=== PATIENT | female | born 1955 | race Caucasian/White ===

== ENCOUNTER 2016-12-20 02:31 | Emergency (ER) | payer BC ==
[2016-12-20] MEDS: NITROGLYCERIN 0.4 MG SL TAB (BOTTLE OF 3) SL ONE ×2 (02:46→02:51)
[2016-12-20] MEDS ORDERED: MORPHINE SULFATE 4 MG/1 ML IVP ONE (02:51)
[2016-12-20] MEDS ORDERED: ONDANSETRON 4 MG/2 ML VIAL IVP ONE (02:51)
[2016-12-20] MEDS ORDERED: Sodium Chloride 0.9% 1,000 ML PRIMARY IV ONE (02:53)
--- NOTE | 2016-12-20 02:59 | PDOC ---
Gen Adult / Medical Screen HPI - General Chief Complaint: General Medical Stated Complaint: COUGH, CONGESTION AND FEVER Date Seen by Provider: 12/20/16 Time Seen by Provider: 02:54 Source: POSITIVE: Patient Exam Limitations: POSITIVE: No limitations Nurse's Notes Reviewed & Considered: Yes - Indicators Temperature Between 95 and 101 Degrees: Yes Respirations Between 12 and 20: Yes Blood Pressure Between 100-165 (sys) and 60-100 (cordero): Yes Pulse Range Between 60-105 (100 for age > 60 years): Yes Severe Pain (Greater than 5/10 Reported): Yes (chest pain) Chest or Abdominal Pain: Yes Inability to Walk: No Pt Reports Active High Risk Cond. (TB/Hepatitis/HIV/Chemo): No Abnormal Mental Status: No - History of Present Illness Initial Comments: Patient comes in today with chief complaint of severe chest pain. Patient had sudden onset of left substernal chest pain with radiation to her back and down her left arm at approximately 1800 hrs. last night. She took some ibuprofen when she found that she had a fever to 104. She took aspirin for approximately 2 hours later when her temperature was 101. She now comes in because of continued chest pain that she describes as sharp in nature. She denies any shortness of breath. She denies any chills or sweats, no nausea vomiting or diarrhea. Body Location Affected: REPORTS: Chest Timing: REPORTS: Abrupt Duration: <24 hours Similar Symptoms Previously: No Recent Care Received: REPORTS: Denies Any Prior Injuries Related to Current Complaint?: No - Patient Home Medications Home Medications: Home Medications Beta-Carotene(A) W-C & E/Min [Vision Vitamins] 1 each PO DAILY tab 07/22/12 Multivitamins W-Minerals [Hair, Skin & Nails] 1 tab ORAL QD #30 tab 07/22/12 Vitamin B Complex [B Complex] 1 each PO DAILY #0 tab 07/22/12 Metoprolol Succinate [Toprol Xl] 50 mg ORAL QD #90 tab 10/03/16 Levothyroxine Sodium [Synthroid] 112 mcg PO DAILY #90 tab 11/25/16 - Patient Allergies Allergies/Adverse Reactions: Allergies Allergy/AdvReac Type Severity Reaction Status Date / Time strawberry Allergy Severe Anaphylaxis Verified 12/20/16 02:36 guaifenesin [From Mucinex] Allergy Intermediate Anaphylaxis Verified 12/20/16 02 :36 Vitamin D Allergy Intermediate RASH Uncoded 12/20/16 02:36 Past Medical History - heen HEENT History: Denies History Cardiovascular History: Hypertension Respiratory History: Other (please comment) Additional Respiratory History: ENVIRONMENTAL ALLERGIES Gastrointestinal History: Denies History Genitourinary History: Denies History Endocrine History: Hypothyroidism Musculoskeletal History: Denies History Neurological History: Denies History Blood Disorders: Denies History Psychiatric History: Denies History Cancer History: Denies History History of MDRO: Unknown Alcohol Use: Rarely Substance Use Type: None Previous Surgical History: Yes Type / Date of Surgery: HYSTER Significant Family History: No pertinent family hx ROS - Limitations ROS Limitations: No Limitations Constitution: REPORTS: Fever Cardiovascular: REPORTS: Chest Pain Respiratory: REPORTS: Denies Resp Symptoms Neurological: REPORTS: Denies Neuro Symptoms Gastrointestinal: REPORTS: Denies GI Symptoms Endocrine: REPORTS: Denies Symptoms Musculoskeletal: REPORTS: Back Pain Genitourinary: REPORTS: Denies Symptoms Eyes: REPORTS: Denies Symptoms ENT: REPORTS: Denies Symptoms Skin: REPORTS: Denies Skin Symptoms Lympathic: REPORTS: Denies Lympathic Symptoms Immunologic: POSITIVE: Denies Symptoms Psychiatric: POSITIVE: Anxiety Gen Adult/Medical Screen Exam - General Appearance General Appearance: POSITIVE: Alert, Cooperative, No Evidence of Trauma, Anxious , Moderate Distress - HEENT HEENT: POSITIVE: Head Inspection Nml, Eyes Inspection Nml, Ears Inspection Nml, Nose Inspection Nml, PERRL, EOMI - Pupils Pupil Size: 4 mm: Bilateral - Neck Neck: POSITIVE: Normal Inspection, Thyroid Normal - Respiratory Respiratory: POSITIVE: No Respiratory Distress, Breath Sounds Normal - Cardiovascular Cardiovascular: POSITIVE: Regular Rate & Rhythm, No Murmur, No Gallop, PMI Normal, Other (Mild chest tenderness to palpation over her sternum.) - Abdomen Abdomen: Soft: (All Quadrants), Normal Bowel Sounds: (All Quadrants), Denies Tenderness: (All Quadrants) - Back Back: POSITIVE: Normal Inspection - Neurological / Psychological Mental Status: POSITIVE: Mood Normal, Affect Normal Orientation: POSITIVE: Oriented x 3 - Skin Skin: POSITIVE: Normal Color, Warm, Dry, No Rash - Extremities Extremity: Non-Tender: (All Extremities), Normal ROM: (All Extremities), Normal Inspection: (All Extremities) Procedures - Laceration/Wound Repair Did patient have a laceration repair: No Gen Adlt/Medical Scrn Progress - Results Reviewed by me Xrays/CTs/US Reviewed by me: Yes Discussed with Radiologist: No Lab Results Reviewed: Yes Lab Results:: Laboratory Results 12/20/16 Range/Units 02:45 WBC 14.54 H (4.8-10.8) 10^3/uL RBC 5.00 (4.20-5.40) 10^6/uL Hgb 15.0 (12.0-16.0) g/dL Hct 43.9 (37.0-47.0) % MCV 87.8 (81-99) FL MCH 30.0 (27-31) PG MCHC 34.2 (33-37) g/dL RDW Std Deviation 46.4 (39-50) fL RDW Coeff of Jensen 14.7 H (11.5-14.5) % Plt Count 278 (140-350) 10*3/uL MPV 10.3 (7.4-12.2) FL Immature Gran % (Auto) 0.3 (0-5) % Neut % (Auto) 84.4 H (50-80) % Lymph % (Auto) 9.2 L (10-50) % Gates % (Auto) 5.6 (5-15) % Eos % (Auto) 0.3 (0-8) % Baso % (Auto) 0.2 (0-1) % Immature Gran # (Auto) 0.05 10*3/UL Neut # (Auto) 12.25 10*3/UL Lymph # (Auto) 1.34 10*3/uL Gates # (Auto) 0.82 H (0.3-0.8) 10*3/UL Eos # (Auto) 0.05 10*3/UL Baso # (Auto) 0.03 10*3/UL WBC Morphology Comment Normal morphology (NORM) Plt Morphology Comment Normal morphology (NORM) RBC Morph Comment Normal morphology (NORM) ESR 4 (0-20) MM/HR PT 10.0 (9.7-11.4) secs INR 0.97 (0.00-5.90) N/A D-Dimer 1.72 H (0.00-0.59) mg/L Sodium 139 (135-145) meq/L Potassium 4.6 (3.8-5.2) meq/L Chloride 104 (98-112) meq/L Carbon Dioxide 26 (23-33) meq/L Anion Gap 9 (5-20) BUN 17 (7-22) mg/dL Creatinine 0.7 (0.50-1.20) mg/dL Estimated GFR > 60 (>60 ml/min/1.73m(2)) BUN/Creatinine Ratio 24.28 H (6-20) Glucose 136 H (78-110) mg/dL Calculated Osmolality 291.0 (267-292) mOsm/kg Calcium 10.2 (8.7-10.7) mg/dL Magnesium 2.1 (1.6-2.4) mg/dL Total Bilirubin 0.5 (0.3-1.2) mg/dL GGT 16 (8-78) IU/L AST 423 H (8-39) IU/L ALT 70 H (9-52) IU/L Alkaline Phosphatase 76 (38-126) IU/L Troponin I 33.000 H* (< 0.040) ng/mL C-Reactive Protein 0.8 (0.0-0.9) mg/dL Total Protein 6.9 (6.1-8.0) g/dL Albumin 4.2 (3.5-4.8) g/dL Globulin 2.7 (2.50-4.10) g/dL Albumin/Globulin Ratio 1.50 (1.3-2.0) mg/g Serum Alcohol < 10 (0-10) mg/dL EKG Interpretation:: POSITIVE: Abnormal EKG (ST depression in V3, V4, V5,V6.) - Patient's Progress Pain Medication Addressed: POSITIVE: Yes Re-Examine Time: 04:01 Status: POSITIVE: Improved MDM / ED Course: Patient was evaluated, an IV started, EKG was obtained, blood was drawn and sent to lab for studies, radiographic studies were obtained. Patient's chest pain did not improve with 2 sublingual nitroglycerin. After administration of IV morphine her pain began to improve. Findings: EKG shows ST depression in leads V3, V4, V5, and V6. Troponin is elevated at 32.9. CBC shows elevated white count of 14-1/2. AST is greater than 400, ALT is elevated in the 70s, GGT is normal at 16, Alcohol is negative. Chest x-ray shows no focal consolidation per my interpretation. PT and INR are nomral value. CT Chest reveals no evidence of great vessel injury, dissection, or aneurysm. Main pulmonary artery is dilated at 3.5 cm, a finding associated with pulmonary artery hypertension. No pulmonary embolism is identified. There is noted to be evidence of bronchitis with bronchial wall thickening. Assessment: Acute coronary syndrome. Plan: Transferred to [facility] for higher level of care and cardiology evaluation. Dr. Adams accepting. - Consult Consult (If Yes, Name of Consulting MD & Time Called): Yes (Dr. Peña) Consulting MD will see pt:: POSITIVE: Recommended Transfer Counseled: POSITIVE: Patient, Family, RE: Lab Results, RE: Radiology Results, RE : DX, RE: Need for F/U, Other (Need for Transfer to higher level of care.) Patient Care Time - Estimated PCT Patient Care Time (In Minutes): 45 Vital Signs - Recent Vital Signs Vital Signs: Vital Signs (Last 8 hours) Temp Pulse Resp BP Pulse Ox 12/20/16 02:31 98.0 F 93 18 130/85 93 - VS Reviewed Vital Signs Reviewed: Yes Discharge Clinical Impression: Acute coronary syndrome Discharge Disposition: Transferred to Tertiary Care Facility Condition: Stable Date Decision to Transfer to Another Facility: 12/20/16 Time Decision to Transfer to Another Facility: 05:29
[2016-12-20] MEDS ORDERED: ASPIRIN 81 MG (BABY) CHEWABLE TABLET PO SCH (03:00)
[2016-12-20 03:01] LABS: BASOPHILS # (AUTO) 0.03 10*3/UL; BASOPHILS % (AUTO) 0.2 % (0-1); EOSINOPHILS % (AUTO) 0.3 % (0-8); HEMATOCRIT 43.9 % (37.0-47.0); IMM GRAN % (AUTO) 0.3 % (0-5); IMM GRAN# (AUTO) 0.05 10*3/UL; LYMPHOCYTES # (AUTO) 1.34 10*3/uL; LYMPHOCYTES % (AUTO) 9.2 % (10-50); MEAN CORPUSCULAR HGB CONC 34.2 g/dL (33-37); MEAN PLATELET VOLUME 10.3 FL (7.4-12.2); MONOCYTES # (AUTO) 0.82 10*3/UL (0.3-0.8); MONOCYTES % (AUTO) 5.6 % (5-15); NEUTROPHILS # (AUTO) 12.25 10*3/UL; NEUTROPHILS % (AUTO) 84.4 % (50-80); RDW COEFFICIENT OF VARIATION 14.7 % (11.5-14.5); WHITE BLOOD COUNT 14.54 10^3/uL (4.8-10.8)
[2016-12-20 03:04] LABS: PLATELET MORPHOLOGY COMMENT NORMAL MORPHOLOGY (NORM)
[2016-12-20 03:11] VITALS: TEMP 98
[2016-12-20 03:17] LABS: ASPARTATE AMINO TRANSFERASE 423 IU/L (8-39); BILIRUBIN,TOTAL 0.5 mg/dL (0.3-1.2); BLOOD UREA NITROGEN 17 mg/dL (7-22); BUN/CREATININE RATIO 24.28 (6-20); C-REACTIVE PROTEIN 0.8 mg/dL (0.0-0.9); CALCIUM 10.2 mg/dL (8.7-10.7); CHLORIDE 104 meq/L (98-112); CREATININE 0.7 mg/dL (0.50-1.20); EST GLOMERULAR FILTRATION > 60 (>60 ml/min/1.73m(2)); GLUCOSE 136 mg/dL (78-110); MAGNESIUM 2.1 mg/dL (1.6-2.4); POTASSIUM 4.6 meq/L (3.8-5.2); SODIUM 139 meq/L (135-145); TOTAL PROTEIN 6.9 g/dL (6.1-8.0)
[2016-12-20 04:17] LABS: ERYTHROCYTE SEDIMENTATION RATE 4 MM/HR (0-20)
[2016-12-20] MEDS ORDERED: HEPARIN 5000 UNIT/1 ML ONE (04:19)
[2016-12-20] MEDS ORDERED: METOPROLOL TARTRATE 5 MG/5 ML VIAL ONE (04:20)
[2016-12-20 04:25] LABS: SERUM ALCOHOL < 10 mg/dL (0-10)
--- NOTE | 2016-12-20 05:22 | DI ---
HISTORY: Chest pain with elevated d-dimer. COMPARISON: None available. TECHNIQUE: Contiguous axial images of the chest were obtained and submitted for interpretation. FINDINGS: No main or segmental pulmonary emboli. No pneumothorax, pleural effusion, or area of cons olidation. There is bibasilar atelectasis versus scar. Airways are patent with no endobronchial les ion. There is diffuse bronchial wall thickening, a finding associated with chronic bronchitis and re active airways disease. No evidence of great vessel injury, dissection, or aneurysm. There are athe romatous aortic and coronary artery calcifications. The main pulmonary artery is dilated at 3.5 cm, a finding associated with pulmonary artery hypertension. Heart size is at the upper limits of normal with no pericardial effusion. No mediastinal or hilar lymphadenopathy. Calcifications are noted i n the right thyroid lobe. The wall of the distal esophagus is thickened, though incompletely distend ed. Limited evaluation of the upper abdomen reveals enlargement of the left greater than right adrenal gl ands, incompletely captured on this examination. There is age indeterminate anterior compression def ormity of T7. There is multilevel degenerative disc disease. IMPRESSION: 1. No main or segmental pulmonary emboli. 2. There is no CT evidence of acute cardiopulmonary pathology. 3. Diffuse bronchial wall thickening, a finding associated with chronic bronchitis and reactive airwa ys disease. 4. The main pulmonary artery is dilated at 3.5 cm, a finding associated with pulmonary artery hyperte nsion. 5. Calcifications are noted in the right thyroid lobe. A dedicated thyroid ultrasound may be obtaine d for further characterization. 6. The wall of the distal esophagus is thickened, though incompletely distended. Although this could represent pseudothickening or a hiatal hernia, an inflammatory or neoplastic process could cause a s imilar appearance. Correlation with upper GI or endoscopic findings is recommended. 7. Enlargement of the left greater than right adrenal glands, incompletely captured on this examinati on. Dedicated adrenal imaging is recommended if no priors are available available for comparison. 8. There is age indeterminate anterior compression deformity of T7. NOTIFICATION: The above findings were phoned to Radha Stewart in the ER Department on 12/20/2016 at 07 :24 AM EST.
--- NOTE | 2016-12-20 05:23 | DI ---
HISTORY: Chest pain. COMPARISON: None available. FINDINGS: A single portable AP view of the chest is submitted. There is no effusion, consolidation, or pneumothorax. Heart size is at the upper limits of normal with increased pulmonary vasculature t hat most likely represents pulmonary edema in the setting of CHF. Atheromatous calcifications are pr esent in the arch of a tortuous aorta. Degenerative changes of the spine are noted. IMPRESSION: 1. There is no effusion, consolidation, or pneumothorax. 2. Heart size is at the upper limits of normal with increased pulmonary vasculature that most likely represents pulmonary edema in the setting of CHF.
--- NOTE | 2016-12-20 05:50 | EKG ---
[address] [address] Measurements Intervals Prentiss Rate: 90 P: 72 MI: 142 QRS: 97 QRSD: 79 T: 69 QT: 354 QTc: 402 Interpretive Statements SINUS RHYTHM BORDERLINE RIGHT AXIS DEVIATION [QRS AXIS > 90] POSSIBLE RIGHT VENTRICULAR CONDUCTION DELAY [RSR (QR) IN V1/V2] MODERATE ST DEPRESSION [0.05+ mV ST DEPRESSION] No previous ECG available for comparison Electronically Signed On 12-20-16 08:42:12 [facility] by Sanya Grover MD [email or web address]
[2016-12-20 05:57] VITALS: RESP 16
== END 2016-12-20 05:45 ==
LOC: ER 02:31
DX: I24.9 Acute ischemic heart disease, unspecified (principal); R06.02 Shortness of breath; R50.9 Fever, unspecified
CPT/HCPCS: 71010; 71260; 80053; 80320; 82977; 83735; 84484; 85025; 85379; 85610; 85652; 86140; 93005; 93010; 96374; 96375; 99284; J1644; J2270; J2405; J7030

== ENCOUNTER 2016-12-31 12:04 | Emergency (ER) | payer BC ==
[2016-12-31] MEDS ORDERED: NORMAL SALINE 10 ML SYRINGE FLUSH IVP PRN (12:25)
--- NOTE | 2016-12-31 12:27 | EKG ---
[address] [place] [address] Measurements Intervals Hayden Rate: 91 P: 59 VT: 126 QRS: 110 QRSD: 99 T: 79 QT: 370 QTc: 418 Interpretive Statements SINUS RHYTHM POSSIBLE RIGHT VENTRICULAR CONDUCTION DELAY LEFT POSTERIOR FASCICULAR BLOCK LATERAL MYOCARDIAL INFARCTION OF INDETERMINATE AGE POSSIBLE INFERIOR MYOCARDIAL INFARCTION, OF INDETERMINATE AGE WITH POSTERIOR EXTENSION [ Compared to ECG 12/20/2016 02:37:50 Left posterior fascicular block now present Myocardial infarct finding now present ST (T wave) deviation no longer present Electronically Signed On 12-31-16 17:08:55 [facility] by Juancarlos Quezada [email or web address]
[2016-12-31 12:48] LABS: BASOPHILS # (AUTO) 0.04 10*3/UL; BASOPHILS % (AUTO) 0.4 % (0-1); EOSINOPHILS % (AUTO) 1.4 % (0-8); HEMATOCRIT 36.8 % (37.0-47.0); HEMOGLOBIN 11.5 g/dL (12.0-16.0); IMM GRAN % (AUTO) 0.4 % (0-5); IMM GRAN# (AUTO) 0.04 10*3/UL; LYMPHOCYTES # (AUTO) 1.08 10*3/uL; LYMPHOCYTES % (AUTO) 11.1 % (10-50); MEAN CORPUSCULAR HGB CONC 31.3 g/dL (33-37); MEAN PLATELET VOLUME 9.1 FL (7.4-12.2); MONOCYTES # (AUTO) 0.85 10*3/UL (0.3-0.8); MONOCYTES % (AUTO) 8.7 % (5-15); NEUTROPHILS # (AUTO) 7.59 10*3/UL; RDW COEFFICIENT OF VARIATION 14.9 % (11.5-14.5); RED BLOOD COUNT 3.96 10^6/uL (4.20-5.40); WHITE BLOOD COUNT 9.74 10^3/uL (4.8-10.8)
[2016-12-31 12:49] LABS: PLATELET MORPHOLOGY COMMENT NORMAL MORPHOLOGY (NORM)
[2016-12-31 13:10] LABS: ASPARTATE AMINO TRANSFERASE 72 IU/L (8-39); BILIRUBIN,TOTAL 0.4 mg/dL (0.3-1.2); BLOOD UREA NITROGEN 17 mg/dL (7-22); BUN/CREATININE RATIO 28.33 (6-20); CALCIUM 9.2 mg/dL (8.7-10.7); CHLORIDE 103 meq/L (98-112); CREATININE 0.6 mg/dL (0.50-1.20); EST GLOMERULAR FILTRATION > 60 (>60 ml/min/1.73m(2)); GLUCOSE 99 mg/dL (78-110); POTASSIUM 4.6 meq/L (3.8-5.2); SODIUM 140 meq/L (135-145); TOTAL PROTEIN 6.8 g/dL (6.1-8.0)
[2016-12-31] MEDS ORDERED: Sodium Chloride 0.9% 1,000 ML PRIMARY IV ONE (13:11)
[2016-12-31 13:17] LABS: PROTHROMBIN TIME 10.5 secs (9.7-11.4)
[2016-12-31 13:58] LABS: NT-PRO BNP 2410 PG/ML (0-125)
--- NOTE | 2016-12-31 14:02 | DI ---
PA /LATERAL CHEST X-RAY, 12/31/2016 12:25 PM : Clinical History: Hypoxia. Shortness of breath. Previous Exam: 12/20/2016. There is no acute soft tissue or bony abnormality. There is cardiomegaly. CHF is not present. Since t he last exam, the patient has developed a moderate-sized left pleural effusion. The patient is rotate d toward the right side slightly and this probably explains the prominent appearance of the right yanira e of the mediastinum on the PA projection. There are no pulmonary nodules. Readin. Interval development of a moderate left pleural effusion. 2. Cardiomegaly without CHF.
[2016-12-31] MEDS ORDERED: FUROSEMIDE 10 MG/1 ML - 4 ML IVP ONE (14:10)
[2016-12-31 14:15] VITALS: RESP 22
--- NOTE | 2016-12-31 17:48 | PDOC ---
Dyspnea HPI - General Chief Complaint: Dyspnea Stated Complaint: SHORTNESS OF BREATH Date Seen by Provider: 12/31/16 Time Seen by Provider: 12:10 - History of Present Illness Initial Comments: Patient is a very nice 61-year-old woman who unfortunately had an UT about a week and a half ago. She was evaluated at [facility] and had a cardiac catheterization and stent placement. She was discharged home and has slowly been developing increasing shortness of breath since that time. She showed up for cardiopulmonary rehabilitation today and is having substantial difficulty breathing. She is requiring around six-day liters of oxygen to maintain any kind of oxygen saturation. Patient states that she has had ongoing intermittent chest pressure. She states that she is at no claude chest pain since the time of her catheterization. She denies any fever or chills. She does have increased difficulty and dyspnea when she lays down. - Patient Home Medications Home Medications: Home Medications Beta-Carotene(A) W-C & E/Min [Vision Vitamins] 1 each PO DAILY tab 07/22/12 Multivitamins W-Minerals [Hair, Skin & Nails] 1 tab ORAL QD #30 tab 07/22/12 Vitamin B Complex [B Complex] 1 each PO DAILY #0 tab 07/22/12 Levothyroxine Sodium [Synthroid] 112 mcg PO DAILY #90 tab 11/25/16 Aspirin [Aspir 81] 81 mg PO DAILY tab 12/25/16 Atorvastatin Calcium 1 tab PO DAILY tab 12/25/16 Clopidogrel Bisulfate [Clopidogrel] 1 tab PO DAILY tab 12/25/16 Gabapentin 1 cap PO TID #90 cap 12/25/16 Linaclotide [Linzess] Sample #4 12/25/16 Losartan Potassium 0.5 tab PO DAILY tab 12/25/16 Metoprolol Succinate 1 tab PO DAILY tab 12/25/16 Ticagrelor [Brilinta] 90 mg PO BID tab 12/25/16 Cyclobenzaprine HCl 10 mg PO QHS #30 tab 12/26/16 Acetaminophen [Tylenol] 325 mg PO PRN PRN 12/31/16 - Patient Allergies Allergies/Adverse Reactions: Allergies Allergy/AdvReac Type Severity Reaction Status Date / Time strawberry Allergy Severe Anaphylaxis Verified 12/31/16 13:12 guaifenesin [From Mucinex] Allergy Intermediate Anaphylaxis Verified 12/31/16 13 :12 Vitamin D Allergy Intermediate RASH Uncoded 12/31/16 13:12 Past Medical History - heen HEENT History: Denies History Cardiovascular History: Hypertension, CAD, Other (please comment) Additional Cardiovasular History: HEART CATH ON 12/19/2016 WITH STENT PLACEMENT x1 Respiratory History: Other (please comment) Additional Respiratory History: ENVIRONMENTAL ALLERGIES Gastrointestinal History: Denies History Genitourinary History: Denies History Endocrine History: Hypothyroidism Musculoskeletal History: Denies History Prosthesis or Implant: No Neurological History: Denies History Blood Disorders: Denies History Psychiatric History: Denies History History of Sexually Transmitted Diseases: No Female Reproductive History: Hysterectomy Cancer History: Denies History In Past Year Been Physically Harmed or Verbally Threatened: No (PER PATIENT) History of MDRO: No History of Other Communicable Diseases: No Tobacco Use: Former Smoker Alcohol Use: Rarely Substance Use Type: None Previous Surgical History: Yes Type / Date of Surgery: PARTIAL HYSTERECTOMY, HEARTH CATHETERIZATION Anesthesia Reactions: No Malignant Hyperthermia: No Family History of Malignant Hyperthermia: No Significant Family History: No pertinent family hx Past Medical History Reviewed: Reviewed - No Changes ROS - Limitations ROS Limitations: No Limitations Constitution: REPORTS: Denies Symptoms, Chills Cardiovascular: REPORTS: Other (Intermittent chest pressure) Respiratory: REPORTS: Shortness Of Breath Neurological: REPORTS: Denies Neuro Symptoms Gastrointestinal: REPORTS: Denies GI Symptoms Dyspnea Physical Exam - General Appearance General Appearance: REPORTS: Alert, Cooperative - HEENT HEENT: POSITIVE: Head Inspection Nml, Eyes Inspection Nml - Neck Neck: REPORTS: Normal Inspection - Respiratory Respiratory: REPORTS: Other (Patient does have some mild to moderate work of breathing. She has diminished lung sounds throughout.) - Cardiovascular Cardiovascular: REPORTS: Regular Rate and Rhythm - Abdomen Abdomen: Soft: (All Quadrants), Normal Bowel Sounds: (All Quadrants), Denies Tenderness: (All Quadrants) - Extremities Additional Extremities Details: 1-2+ pitting edema bilateral lower extremities - Neurological / Psychological Neurological: POSITIVE: Affect Apporpriate, Oriented X3 Dyspnea Progress - Results Reviewed by me Xrays/CTs/US Reviewed by me: Yes Discussed with Radiologist: Yes Radiology Findings: CT angiogram shows a large pericardial effusion and some pleural effusion as well. Does not show overt her substantial pulmonary edema/ fluid overload. No evidence of pulmonary embolus Lab Results Reviewed: Yes Lab Results:: Laboratory Results 12/31/16 12/31/16 Range/Units 12:39 14:44 WBC 9.74 (4.8-10.8) 10^3/uL RBC 3.96 L (4.20-5.40) 10^6/uL Hgb 11.5 L (12.0-16.0) g/dL Hct 36.8 L (37.0-47.0) % MCV 92.9 (81-99) FL MCH 29.0 (27-31) PG MCHC 31.3 L (33-37) g/dL RDW Std Deviation 49.6 (39-50) fL RDW Coeff of Jensen 14.9 H (11.5-14.5) % Plt Count 453 H (140-350) 10*3/uL MPV 9.1 (7.4-12.2) FL Immature Gran % (Auto) 0.4 (0-5) % Neut % (Auto) 78.0 (50-80) % Lymph % (Auto) 11.1 (10-50) % Geary % (Auto) 8.7 (5-15) % Eos % (Auto) 1.4 (0-8) % Baso % (Auto) 0.4 (0-1) % Immature Gran # (Auto) 0.04 10*3/UL Neut # (Auto) 7.59 10*3/UL Lymph # (Auto) 1.08 10*3/uL Geary # (Auto) 0.85 H (0.3-0.8) 10*3/UL Eos # (Auto) 0.14 10*3/UL Baso # (Auto) 0.04 10*3/UL WBC Morphology Comment Normal morphology (NORM) Plt Morphology Comment Normal morphology (NORM) RBC Morph Comment Normal morphology (NORM) PT 10.5 (9.7-11.4) secs INR 1.02 (0.00-5.90) N/A D-Dimer 5.67 H (0.00-0.59) mg/L Sodium 140 (135-145) meq/L Potassium 4.6 (3.8-5.2) meq/L Chloride 103 (98-112) meq/L Carbon Dioxide 31 (23-33) meq/L Anion Gap 6 (5-20) BUN 17 (7-22) mg/dL Creatinine 0.6 (0.50-1.20) mg/dL Estimated GFR > 60 (>60 ml/min/1.73m(2)) BUN/Creatinine Ratio 28.33 H (6-20) Glucose 99 (78-110) mg/dL Calculated Osmolality 291.0 (267-292) mOsm/kg Calcium 9.2 (8.7-10.7) mg/dL Total Bilirubin 0.4 (0.3-1.2) mg/dL AST 72 H (8-39) IU/L ALT 121 H (9-52) IU/L Alkaline Phosphatase 139 H (38-126) IU/L Troponin I 1.680 H* 1.560 H* (< 0.040) ng/mL NT-Pro-B Natriuret Pep 2410 H (0-125) PG/ML Total Protein 6.8 (6.1-8.0) g/dL Albumin 3.7 (3.5-4.8) g/dL Globulin 3.1 (2.50-4.10) g/dL Albumin/Globulin Ratio 1.10 L (1.3-2.0) mg/g - Patient's Progress MDM / ED Course: This patient had initial blood work and EKG that were discussed with changeover operator. He was felt that these were consistent with changes from her recent UT. There was concern that she continued to have shortness of breath however and she was given some Lasix with her elevated BNP and plan was to admit her to the hospital. Her d-dimer came back markedly elevated however therefore she had a CT scan of her with PE protocol. This shows a large pericardial effusion and a pleural effusion. This is all discussed with the changeover operator at [facility] and the emergency room physician there as well. She can go through the ER there and be admitted to cardiology. She is transferred via ambulance. Patient Care Time - Estimated PCT Patient Care Time (In Minutes): 50 Vital Signs - Recent Vital Signs Vital Signs: Vital Signs (Last 8 hours) Temp Pulse Pulse Resp BP Pulse Ox 12/31/16 12:12 92 12/31/16 12:04 97.0 F 94 22 106/58 94 - VS Reviewed Vital Signs Reviewed: Yes Discharge Clinical Impression: Pericardial effusion, Pleural effusion Congestive heart failure Qualifiers: Congestive heart failure type: unspecified congestive heart failure type Congestive heart failure chronicity: acute Qualifier Code: (I50.9) Heart failure , unspecified Discharge Disposition: Transferred to Tertiary Care Facility Condition: Fair Follow Up With: NONE,NONE [Primary Care Provider] - Date Decision to Transfer to Another Facility: 12/31/16 Time Decision to Transfer to Another Facility: 17:57
[2016-12-31 18:16] VITALS: TEMP 97.9
--- NOTE | 2016-12-31 21:54 | DI ---
CT ANGIOGRAM OF THE CHEST, 12/31/2016 1:37 PM : Clinical History: Dyspnea. Elevated D-dimer test. Abnormal chest x-ray. Previous Exam: 12/20/2016. Scans are performed from the base of the neck to the lower lung bases following IV administration of 75 mL of Isovue 300. Proprietary automated bolus tracking software was used to verify the timing of t he injection. The base of the neck and thoracic inlet are normal. There are no abnormal axillary, supraclavicular, mediastinal, or hilar nodes. Since the previous study 11 days earlier, the patient has developed a la rge pericardial effusion with a maximum thickness in some areas of 4 cm. Review of the earlier studie s show no evidence of a pericardial effusion. There is a small left pleural effusion with left lower lobe atelectasis. There is a very small right pleural effusion. There are stents in the proximal left circumflex artery and probably also in the proximal third of the LAD. There is pulmonary arterial hy pertension but there is no pulmonary embolism or pulmonary embolism with infarction. The lungs are cl ear and there are no pulmonary nodules or masses. Bilateral adrenal masses are present and these are in the range of 5 cm in diameter and would be suspicious for either metastatic disease or primary mal ignant adrenal tumors. READIN. Interval development of a very large pericardial effusion with small bilateral pleural effusions, greater on the left side in the right. There is left lower lobe atelectasis. 2. Pulmonary arterial hypertension without evidence of pulmonary embolism or pulmonary embolism with infarction. 3. The heart itself appears normal. Coronary artery stents are present in the proximal portion of th e left circumflex artery and probably also in the proximal third of the LAD. 4. Large bilateral adrenal tumors approximately 5 cm in diameter. Based on the size, these either re present bilateral primary malignant adrenal tumors or metastatic disease.
== END 2016-12-31 18:08 | disposition short-term general hospital (02) ==
LOC: ER 12:04
DX: I31.3 Pericardial effusion (noninflammatory) (principal); J90 Pleural effusion, not elsewhere classified; I50.9 Heart failure, unspecified; R07.89 Other chest pain; Z98.890 Other specified postprocedural states
CPT/HCPCS: 36415; 71020; 71275; 80053; 83880; 84484; 85025; 85379; 85610; 93005; 93010; 96374; 99284; J1940

== ENCOUNTER 2017-01-10 04:16 | Emergency (ER) | payer BC ==
[2017-01-10] MEDS ORDERED: IPRATROPIUM/ALBUTEROL SULFATE 3 ML NEB NEB ONE ×2 (04:50→04:59)
[2017-01-10] MEDS ORDERED: ASPIRIN 81 MG (BABY) CHEWABLE TABLET PO ONE (05:03)
[2017-01-10] MEDS ORDERED: NORMAL SALINE 10 ML SYRINGE FLUSH IVP PRN (05:03)
[2017-01-10] MEDS ORDERED: Sodium Chloride 0.9% 1,000 ML PRIMARY IV ONE (05:03)
[2017-01-10 05:08] LABS: BASOPHILS # (AUTO) 0.07 10*3/UL; BASOPHILS % (AUTO) 0.4 % (0-1); EOSINOPHILS % (AUTO) 0.6 % (0-8); HEMATOCRIT 42.4 % (37.0-47.0); HEMOGLOBIN 13.1 g/dL (12.0-16.0); LYMPHOCYTES # (AUTO) 1.77 10*3/uL; MEAN CORPUSCULAR HEMOGLOBIN 28.4 PG (27-31); MEAN CORPUSCULAR HGB CONC 30.9 g/dL (33-37); MEAN PLATELET VOLUME 9.4 FL (7.4-12.2); MONOCYTES # (AUTO) 1.72 10*3/UL (0.3-0.8); MONOCYTES % (AUTO) 9.6 % (5-15); NEUTROPHILS % (AUTO) 79.2 % (50-80); PLATELET MORPHOLOGY COMMENT NORMAL MORPHOLOGY (NORM); RBC MORPHOLOGY COMMENT NORMAL MORPHOLOGY (NORM); RED BLOOD COUNT 4.61 10^6/uL (4.20-5.40); WBC MORPHOLOGY COMMENT NORMAL MORPHOLOGY (NORM)
[2017-01-10] MEDS ORDERED: FUROSEMIDE 10 MG/1 ML - 4 ML ONE ×2 (05:09→05:17)
[2017-01-10] MEDS: FUROSEMIDE 10 MG/1 ML - 4 ML IVP ONE ×2 (05:09→05:19)
[2017-01-10] MEDS ORDERED: Sodium Chloride 0.9% 1,000 ML ONE ×2 (05:09→08:08)
[2017-01-10] MEDS ORDERED: ASPIRIN 81 MG (BABY) CHEWABLE TABLET ONE (05:09)
--- NOTE | 2017-01-10 05:16 | EKG ---
[address] [place] [address] Measurements Intervals [place] Rate: 136 P: 50 CO: 144 QRS: 115 QRSD: 91 T: 0 QT: 224 QTc: 304 Interpretive Statements SINUS TACHYCARDIA INCOMPLETE RIGHT BUNDLE BRANCH BLOCK [90+ ms QRS DURATION, TERMINAL R IN V1/V2, 40+ ms S IN I/aVL/V4/V5/V6] RIGHT VENTRICULAR HYPERTROPHY AND ST-T CHANGE [SOME/ALL OF: PROMINENT R IN V1, LATE TRANSITION, RAD, FLYNN, SSS, RIGHT PRECORDIAL PROBABLE LATERAL MYOCARDIAL INFARCTION [35 ms Q WAVE IN I/aVL/V5/V6], OF INDETERMINATE AGE ST DEPRESSION, CONSIDER SUBENDOCARDIAL INJURY [0.1+ mV ST DEPRESSION] INTERPRETATION BASED ON A DEFAULT AGE OF 40 YEARS Compared to ECG 12/31/2016 12:10:09 Incomplete right bundle-branch block now present Atrial abnormality now present Right ventricular hypertrophy now present ST (T wave) deviation now present Sinus rhythm no longer present Left posterior fascicular block no longer present Myocardial infarct finding still present Electronically Signed On 01-10-17 14:38:53 MDT by Sanya Grover MD [id number]
[2017-01-10 05:22] LABS: BLOOD UREA NITROGEN 25 mg/dL (7-22); BUN/CREATININE RATIO 35.71 (6-20); CALCIUM 9.5 mg/dL (8.7-10.7); CREATINE KINASE MB 1.31 NG/ML (0.00-5.00); EST GLOMERULAR FILTRATION > 60 (>60 ml/min/1.73m(2)); LIPASE 53 IU/L (23-300); SERUM ALBUMIN 4.2 g/dL (3.5-4.8)
[2017-01-10 05:24] LABS: TROPONIN I 0.217 ng/mL (< 0.040)
--- NOTE | 2017-01-10 05:33 | DI ---
HISTORY: Chest pain. COMPARISON: None available. FINDINGS: A single portable AP view of the chest is submitted. The left lung base is excluded from the field of view. Heart size is enlarged with increased pulmonary vasculature that most likely repr esents pulmonary edema in the setting of CHF. There is likely a moderate left pleural effusion. Lef t lung base consolidation is not excluded. There is no pneumothorax. Atheromatous calcifications ar e present in the arch of a tortuous aorta. Degenerative changes of the spine are noted. IMPRESSION: 1. The left lung base is excluded from the field of view. There is likely a moderate left pleural eff usion. Left lung base consolidation is not excluded. Follow-up to resolution is recommended. 2. Heart size is enlarged with increased pulmonary vasculature that most likely represents pulmonary edema in the setting of CHF.
[2017-01-10 05:34] LABS: VENOUS PH 7.36 (7.32-7.42)
[2017-01-10] MEDS ORDERED: ALBUTEROL SULFATE 2.5 MG/3 ML NEB ONE ×2 (05:45→05:47)
[2017-01-10 06:14] LABS: BILIRUBIN,URINE NEGATIVE (NEG); CLARITY,URINE CLOUDY (CLEAR); COLOR,URINE YELLOW; GLUCOSE, URINE (UA) NEGATIVE (NEG); NITRATE,URINE NEGATIVE (NEG); OCCULT BLOOD,URINE LARGE (NEG); PROTEIN,URINE 30 mg/dl (NEG); URINE SAMPLE TYPE CATH SPECIMEN; UROBILINOGEN,URINE 0.2 EU/dL (0.2)
[2017-01-10 06:17] LABS: RBC,URINE 80-100 /hpf
[2017-01-10 06:18] LABS: BACTERIA,URINE MODERATE; URINE CASTS MODERATE
[2017-01-10] MEDS ORDERED: MORPHINE SULFATE 4 MG/1 ML IVP ONE (06:54)
[2017-01-10] MEDS ORDERED: MORPHINE SULFATE 10 MG/1 ML ONE (06:55)
--- NOTE | 2017-01-10 07:42 | DI ---
HISTORY: Elevated d-dimer and dyspnea. COMPARISON: 12/31/2016. TECHNIQUE: Multiple helically acquired CT images were obtained through the chest following a CTA pul monary angiogram. FINDINGS: Examination demonstrates a large pericardial effusion. There is airspace disease predominantly within the left lung base with a small left pleural effusion. The pulmonary arteries and demonstrate no evidence of filling defect nor truncation to suggest pulmon maia embolism. The aorta is within normal limits. There is some motion artifact in the lung bases which limits the examination. The upper abdomen demonstrates enlarged adrenal glands bilaterally which are not completely visible o n this examination. These were also seen on the prior examination. IMPRESSION: 1. Stable large pericardial effusion. 2. Airspace disease within the left lower lobe with improvement in the size of the pleural effusion, but some increasing airspace disease worrisome for a left lower lobe pneumonia. 3. Stable enlargement of both adrenal glands which is not well evaluated on this examination.
--- NOTE | 2017-01-10 07:46 | PDOC ---
Dyspnea HPI - General Chief Complaint: Respiratory Complaint Stated Complaint: SOB Date Seen by Provider: 01/10/17 Time Seen by Provider: 04:40 Source: POSITIVE: Patient, Spouse, Old records Exam Limitations: POSITIVE: No limitations Treatment Prior to Arrival: REPORTS: Oxygen Nurse's Notes Reviewed & Considered: Yes - History of Present Illness Initial Comments: The patient is a 61-year-old female who is brought to the emergency room by her with severe dyspnea. Patient states that she was not able to sleep last night due to shortness of breath and orthopnea. 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 Recent past medical history is significant in that she had a myocardial infarction on 19 December and was seen by cardiology at [facility] and her states that the patient had a stent placed. Patient was seen again in our emergency room on December 31 with progressive shortness of breath and was found to be in congestive heart failure. She was again sent to [facility] where she had treatment of her congestive heart failure; she was found to have a left pleural effusion at that time and patient underwent thoracentesis 2 or 3 days ago. Patient smoked up until her heart attack on December 19. Patient states that she does use oxygen at night, reportedly 1 L/m. She does have a history of chronic back pain. History of hypothyroidism. Patient has had a hysterectomy. No fevers or chills. Body Location Affected: REPORTS: Chest (Dyspnea) Timing: REPORTS: Gradual, Getting Worse Duration: <24 hours Severity: Severe Quality: REPORTS: Other (Patient complains of chronic low back pain; no chest pain.) Initiating Event: DENIES: Upper Respiratory Illness, Out of Medications, Sports , Exercise, Aspiration, Choking, Allergy, Exposure - Smoke, Exposure - Mold, Exposure - Other Allergen Context: REPORTS: Sleep (Orthopnea and difficulty sleeping due to dyspnea) Exacerbated By: REPORTS: Exertion, Laying Flat Associated Symptoms: DENIES: Fever, Chills, Sweating, Chest Pain, Chest Discomfort, Left Chest, Right Chest, Central Chest, Chest Heaviness, Chest Tightness, Painful Breathing, Radiation to Back, Radiation to Jaw, Radiation to Arm, Bloody Cough, Productive Cough, Heart Racing, Leg Pain, Calf Pain, Ankle Swelling, Leg Swelling, Dizziness, Light-Headedness, Anxiety, Tingling - Hands, Tingling - Face, Muscle Spasms - Hands, Muscle Spasms - Feet Similar Symptoms Previously: Yes Recently seen/treated/hospitalized: Yes Any Prior Injuries Related to Current Complaint?: No - Patient Home Medications Home Medications: Home Medications Beta-Carotene(A) W-C & E/Min [Vision Vitamins] 1 each PO DAILY tab 07/22/12 Multivitamins W-Minerals [Hair, Skin & Nails] 1 tab ORAL QD #30 tab 07/22/12 Vitamin B Complex [B Complex] 1 each PO DAILY #0 tab 07/22/12 Levothyroxine Sodium [Synthroid] 112 mcg PO DAILY #90 tab 11/25/16 Aspirin [Aspir 81] 81 mg PO DAILY tab 12/25/16 Atorvastatin Calcium 1 tab PO DAILY tab 12/25/16 Clopidogrel Bisulfate [Clopidogrel] 1 tab PO DAILY tab 12/25/16 Gabapentin 1 cap PO TID #90 cap 12/25/16 Linaclotide [Linzess] Sample #4 12/25/16 Losartan Potassium 0.5 tab PO DAILY tab 12/25/16 Metoprolol Succinate 1 tab PO DAILY tab 12/25/16 Ticagrelor [Brilinta] 90 mg PO BID tab 12/25/16 Cyclobenzaprine HCl 10 mg PO QHS #30 tab 12/26/16 Acetaminophen [Tylenol] 325 mg PO PRN PRN 12/31/16 - Patient Allergies Allergies/Adverse Reactions: Allergies Allergy/AdvReac Type Severity Reaction Status Date / Time strawberry Allergy Severe Anaphylaxis Verified 01/10/17 05:33 guaifenesin [From Mucinex] Allergy Intermediate Anaphylaxis Verified 01/10/17 05 :33 Vitamin D Allergy Intermediate RASH Uncoded 01/10/17 05:33 Past Medical History - heen HEENT History: Denies History Cardiovascular History: Hypertension, CAD, Other (please comment) Additional Cardiovasular History: HEART CATH ON 12/19/2016 WITH STENT PLACEMENT x1 Respiratory History: Other (please comment) Additional Respiratory History: ENVIRONMENTAL ALLERGIES Gastrointestinal History: Denies History Genitourinary History: Denies History Endocrine History: Hypothyroidism Musculoskeletal History: Back Pain Prosthesis or Implant: No Neurological History: Denies History Blood Disorders: Denies History Psychiatric History: Denies History History of Sexually Transmitted Diseases: No Female Reproductive History: Denies History Obstetrical History: Denies History Cancer History: Other (please comment) In Past Year Been Physically Harmed or Verbally Threatened: No History of MDRO: No History of Other Communicable Diseases: No Tobacco Use: Never Smoker Alcohol Use: Rarely Substance Use Type: None Previous Surgical History: Yes Type / Date of Surgery: PARTIAL HYSTERECTOMY, HEARTH CATHETERIZATION Anesthesia Reactions: No Malignant Hyperthermia: No Significant Family History: No pertinent family hx Past Medical History Reviewed: Reviewed - No Changes ROS - Limitations ROS Limitations: Clinical Condition (Patient not able to speak in full sentences due to severe dyspnea. Recent past medical history and review of systems initially obtained from her .) Constitution: REPORTS: Denies Symptoms Cardiovascular: REPORTS: Denies Cardiac Symptoms Respiratory: REPORTS: Shortness Of Breath (Severe dyspnea) Neurological: REPORTS: Denies Neuro Symptoms Gastrointestinal: REPORTS: Denies GI Symptoms Endocrine: REPORTS: Denies Symptoms Musculoskeletal: REPORTS: Denies MS Symptoms Genitourinary: REPORTS: Denies Symptoms Eyes: REPORTS: Denies Symptoms ENT: REPORTS: Denies Symptoms Skin: REPORTS: Denies Skin Symptoms Lympathic: REPORTS: Denies Lympathic Symptoms Immunologic: POSITIVE: Denies Symptoms Psychiatric: POSITIVE: Denies Psych Symptoms Dyspnea Physical Exam - General Appearance General Appearance: REPORTS: Alert, Cooperative, No Evidence of Trauma, Moderate Distress (Respiratory distress). DENIES: No Acute Distress - HEENT HEENT: POSITIVE: Head Inspection Nml, Eyes Inspection Nml, Ears Inspection Nml, Nose Inspection Nml, Oral/Dental Inspect. Nml, Pharynx Inspect. Nml, PERRL, EOMI - Neck Neck: REPORTS: Normal Inspection, No Carotid Bruit - Respiratory Respiratory: REPORTS: No Pleuritic Chest Pain, No Pain on Inspiration, Respiratory Distress, Rales (Rales both lung lopez, especially left). DENIES: No Respiratory Distress, Breath Sounds Normal, Speaks Full Sentences - Cardiovascular Cardiovascular: REPORTS: No Murmur, No Gallop, No Friction Rub, No JVD, Irregularly Irreg Rhythm, Tachycardia (Sinus tachycardia of 140), S3 Gallop. DENIES: Heart Sounds Normal Peripheral Pulses: Radial (R): 2+, Radial (L): 2+ - Abdomen Abdomen: Soft: (All Quadrants), Normal Bowel Sounds: (All Quadrants), Denies Tenderness: (All Quadrants), No Splenomegaly: (All Quadrants), No Hepatomegaly: (All Quadrants), No Guarding: (All Quadrants), No Rebound: (All Quadrants), No Palpable Pulse: (All Quadrants), No Palpabale Mass: (All Quadrants), No Distention: (All Quadrants), No Rigidity: (All Quadrants) - Skin Skin: REPORTS: Intact, Normal For Race, Warm, Dry, No Rash - Extremities Extremity: Non-Tender: (All Extremities), Normal ROM: (All Extremities), Normal Inspection: (All Extremities) - Neurological / Psychological Neurological: 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, 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, Motor Normal, Sensation Normal, 5, 6 Dyspnea Progress - Results Reviewed by me Xrays/CTs/US Reviewed by me: Yes Discussed with Radiologist: Yes Radiology Findings: Pulmonary edema Lab Results Reviewed: Yes Lab Results:: Laboratory Results 01/10/17 01/10/17 01/10/17 Range/Units 04:58 05:00 05:34 WBC 17.92 H (4.8-10.8) 10^3/uL RBC 4.61 (4.20-5.40) 10^6/uL Hgb 13.1 (12.0-16.0) g/dL Hct 42.4 (37.0-47.0) % MCV 92.0 (81-99) FL MCH 28.4 (27-31) PG MCHC 30.9 L (33-37) g/dL RDW Std Deviation 48.0 (39-50) fL RDW Coeff of [place] 14.7 H (11.5-14.5) % Plt Count 464 H (140-350) 10*3/uL MPV 9.4 (7.4-12.2) FL Immature Gran % (Auto) 0.3 (0-5) % Neut % (Auto) 79.2 (50-80) % Lymph % (Auto) 9.9 L (10-50) % [place] % (Auto) 9.6 (5-15) % Eos % (Auto) 0.6 (0-8) % Baso % (Auto) 0.4 (0-1) % Immature Gran # (Auto) 0.06 10*3/UL Neut # (Auto) 14.20 10*3/UL Lymph # (Auto) 1.77 10*3/uL [place] # (Auto) 1.72 H (0.3-0.8) 10*3/UL Eos # (Auto) 0.10 10*3/UL Baso # (Auto) 0.07 10*3/UL WBC Morphology Comment Normal morphology (NORM) Plt Morphology Comment Normal morphology (NORM) RBC Morph Comment Normal morphology (NORM) PT 10.4 10.6 (9.7-11.4) secs INR 30.1 H* 1.03 D (0.00-5.90) N/A D-Dimer 10.03 H 7.37 H (0.00-0.59) mg/L VBG pH 7.36 (7.32-7.42) VBG pCO2 48 (45-55) mmHg VBG HCO3 28 H (22-26) mmol/L VBG Base Excess 2 (-2-2) MMOL/L Sodium 143 (135-145) meq/L Potassium 4.5 (3.8-5.2) meq/L Chloride 99 (98-112) meq/L Carbon Dioxide 31 (23-33) meq/L Anion Gap 13 (5-20) BUN 25 H (7-22) mg/dL Creatinine 0.7 (0.50-1.20) mg/dL Estimated GFR > 60 (>60 ml/min/1.73m(2)) BUN/Creatinine Ratio 35.71 H (6-20) Glucose 247 H (78-110) mg/dL Calculated Osmolality 307.0 H (267-292) mOsm/kg Calcium 9.5 (8.7-10.7) mg/dL Total Bilirubin 0.7 (0.3-1.2) mg/dL AST 30 (8-39) IU/L ALT 27 (9-52) IU/L Alkaline Phosphatase 133 H (38-126) IU/L CK-MB (CK-2) 1.31 (0.00-5.00) NG/ML Troponin I 0.217 H* (< 0.040) ng/mL NT-Pro-B Natriuret Pep 4940 H (0-125) PG/ML Total Protein 7.7 (6.1-8.0) g/dL Albumin 4.2 (3.5-4.8) g/dL Globulin 3.5 (2.50-4.10) g/dL Albumin/Globulin Ratio 1.20 L (1.3-2.0) mg/g Amylase 34 (30-110) U/L Lipase 53 (23-300) IU/L Ur Collection Type Urine Color Urine Clarity (CLEAR) Urine pH (5.0-8.5) Ur Specific [place] (1.005-1.030) Urine Protein (NEG) mg/dl Urine Glucose (UA) (NEG) mg/dL Urine Ketones (NEG) Urine Occult Blood (NEG) Urine Nitrate (NEG) Urine Bilirubin (NEG) Urine Urobilinogen (0.2) EU/dL Ur Leukocyte Esterase (NEG) Urine RBC (NONE) /hpf Urine WBC (NONE) Ur Squamous Epith Cells (NONE) Ur Renal Epithelial Cell (NONE) Urine Crystals Urine Bacteria (NONE) Urine Casts (NONE) Urine Mucus (NONE) Urine Trichomonas (NONE) Urine Yeast (NONE) Ur Culture Indicated? 01/10/17 Range/Units 05:55 WBC (4.8-10.8) 10^3/uL RBC (4.20-5.40) 10^6/uL Hgb (12.0-16.0) g/dL Hct (37.0-47.0) % MCV (81-99) FL MCH (27-31) PG MCHC (33-37) g/dL RDW Std Deviation (39-50) fL RDW Coeff of Jensen (11.5-14.5) % Plt Count (140-350) 10*3/uL MPV (7.4-12.2) FL Immature Gran % (Auto) (0-5) % Neut % (Auto) (50-80) % Lymph % (Auto) (10-50) % [place] % (Auto) (5-15) % Eos % (Auto) (0-8) % Baso % (Auto) (0-1) % Immature Gran # (Auto) 10*3/UL Neut # (Auto) 10*3/UL Lymph # (Auto) 10*3/uL [place] # (Auto) (0.3-0.8) 10*3/UL Eos # (Auto) 10*3/UL Baso # (Auto) 10*3/UL WBC Morphology Comment (NORM) Plt Morphology Comment (NORM) RBC Morph Comment (NORM) PT (9.7-11.4) secs INR (0.00-5.90) N/A D-Dimer (0.00-0.59) mg/L VBG pH (7.32-7.42) VBG pCO2 (45-55) mmHg VBG HCO3 (22-26) mmol/L VBG Base Excess (-2-2) MMOL/L Sodium (135-145) meq/L Potassium (3.8-5.2) meq/L Chloride (98-112) meq/L Carbon Dioxide (23-33) meq/L Anion Gap (5-20) BUN (7-22) mg/dL Creatinine (0.50-1.20) mg/dL Estimated GFR (>60 ml/min/1.73m(2)) BUN/Creatinine Ratio (6-20) Glucose (78-110) mg/dL Calculated Osmolality (267-292) mOsm/kg Calcium (8.7-10.7) mg/dL Total Bilirubin (0.3-1.2) mg/dL AST (8-39) IU/L ALT (9-52) IU/L Alkaline Phosphatase (38-126) IU/L CK-MB (CK-2) (0.00-5.00) NG/ML Troponin I (< 0.040) ng/mL NT-Pro-B Natriuret Pep (0-125) PG/ML Total Protein (6.1-8.0) g/dL Albumin (3.5-4.8) g/dL Globulin (2.50-4.10) g/dL Albumin/Globulin Ratio (1.3-2.0) mg/g Amylase (30-110) U/L Lipase (23-300) IU/L Ur Collection Type Cath specimen Urine Color Yellow Urine Clarity Cloudy (CLEAR) Urine pH 6.0 (5.0-8.5) Ur Specific [place] 1.010 (1.005-1.030) Urine Protein 30 (NEG) mg/dl Urine Glucose (UA) Negative (NEG) mg/dL Urine Ketones Negative (NEG) Urine Occult Blood Large H (NEG) Urine Nitrate Negative (NEG) Urine Bilirubin Negative (NEG) Urine Urobilinogen 0.2 (0.2) EU/dL Ur Leukocyte Esterase Small (NEG) Urine RBC 80-100 (NONE) /hpf Urine WBC 9-14 (NONE) Ur Squamous Epith Cells None (NONE) Ur Renal Epithelial Cell None (NONE) Urine Crystals None Urine Bacteria Moderate (NONE) Urine Casts Moderate (NONE) Urine Mucus Moderate (NONE) Urine Trichomonas None (NONE) Urine Yeast None (NONE) Ur Culture Indicated? Culture set EKG Interpretation:: POSITIVE: Normal Intervals, Normal QRS, Abnormal EKG ( Sinus tachycardia; ST depression in leads V2 V3 and V4, not seen on electrocardiogram on 19 December), Previous EKG Reviewed. NEGATIVE: Normal Rate , Normal ST/T - Patient's Progress Pain Medication Addressed: POSITIVE: Yes (Patient given morphine sulfate for back pain, and also her congestive heart failure) School/Work Release Addressed: POSITIVE: Not Applicable Re-Examine Time: 05:50 Re-Examine Comment: 80 mg of Lasix given IV with good diuretic response; approximately 600 mL of urine recovered. Patient also maintained on supplemental oxygen and patient is maintaining her SaO2 at 96% on oxygen by mask. Patient breathing much better at this time. Patient is able now to speak in full sentences and is able to lie flat. Re-Examine Time:: 07:25 Re-Examine Comment: INR initially reported as 30; repeat INR, however, shows it to be slightly above 1.0. BNP 4900 patient continues to diurese and improve clinically. Pulse down to 110. Maintaining her oxygen saturations well. Status: POSITIVE: Improved, Re-Examined Air Movement: POSITIVE: Fair Quality Measure Initiative: CP/AMI: POSITIVE: EKG, ASA - Consult Consult (If Yes, Name of Consulting MD & Time Called): Yes (Dr. Adams, cardiology, [id number]) Consulting MD will see pt:: POSITIVE: Recommended Transfer Counseled: POSITIVE: Patient, Family, RE: Lab Results, RE: Radiology Results, RE : DX, RE: Need for F/U Patient Care Time - Estimated PCT Patient Care Time (In Minutes): 180 Vital Signs - Recent Vital Signs Vital Signs: Vital Signs (Last 8 hours) Temp Pulse Pulse Resp BP Pulse Ox 01/10/17 07:28 102 H 22 105/61 97 01/10/17 07:00 113 H 22 123/68 01/10/17 05:14 150 H 01/10/17 04:16 97.2 F 145 H 50 H 149/101 66 - VS Reviewed Vital Signs Reviewed: Yes Critical Care Note - Critical Care Note Total Time (mins): 180 Critical Care: Respiratory Failure, Life Threatening Scenario History Source: Patient, Family, Old records Discussion with Family: Patient and her Discussion with Single Corner Cutter: Dr. Carr, cardiology, [facility]. Comments: Patient's pulmonary edema improved on discharge. Saturations well-maintained. Patient much less dyspneic. Tachycardia and tachypnea resolving. Discharge Clinical Impression: Pulmonary edema cardiac cause, Elevated troponin level, Congestive heart failure Discharge Disposition: Transferred to Short Term Facility Condition: Fair Date Decision to Transfer to Another Facility: 01/10/17 Time Decision to Transfer to Another Facility: 07:00
[2017-01-10 08:52] VITALS: RESP 26; TEMP 97.6
== END 2017-01-10 08:31 | disposition short-term general hospital (02) ==
LOC: ER 04:16
DX: I50.1 Left ventricular failure, unspecified (principal); R79.89 Other specified abnormal findings of blood chemistry; R06.02 Shortness of breath
CPT/HCPCS: 36415 ×2; 71010; 71275; 80053; 81001; 81003; 82150; 82553; 82803; 83690; 83880; 84484; 85025; 85379; 85610; 87077; 87088; 87186 ×2; 93005; 93010; 96374; 96375; 99291 ×2; 99292; J2270; J7620; J1940; J7030

== ENCOUNTER → 2017-01-20 | Outpatient (CLI) | payer BC ==
[2017-01-20 08:20] LABS: BLOOD UREA NITROGEN 15 mg/dL (7-22); BUN/CREATININE RATIO 18.75 (6-20); CALCIUM 9.5 mg/dL (8.7-10.7); EST GLOMERULAR FILTRATION > 60 (>60 ml/min/1.73m(2))
== END ==
LOC: LAB 07:39
PROVIDERS: ATTEND Nurse Practitioner Family
DX: I25.10 Atherosclerotic heart disease of native coronary artery without angina pectoris (principal); I50.9 Heart failure, unspecified
CPT/HCPCS: 36415; 80048

== ENCOUNTER → 2017-01-28 | Outpatient (CLI) | payer BC ==
--- NOTE | 2017-01-28 09:38 | DI ---
CT ABDOMEN SCAN WITHOUT AND WITH IV CONTRAST, 01/28/2017 7:46 AM : Clinical History: Abnormal CT scan, kidney. Previous Exam: 10/11/2011. Comparison is also made with CT angiograms of the chest from 12/31/2016 and 01/10/2017, as well as a CT scan of the chest with IV contrast from 12/20/2016. Scans are performed from the lower lung bases through the liver and kidneys without and with IV contr ast. Sagittal and coronal reformatted images are generated. 75 ml of Isovue 300 was injected IV. Small bilateral pleural effusions are present, but these are smaller than on the most recent CT angio gram of the chest from 01/10/2017. In addition, the pericardial effusion is still present but has decr eased as well. With contrast, there is four-chamber dilatation suggesting a cardiomyopathy. At the in itial postcontrast sequence obtained 60 seconds after injection, the hepatic veins and the IVC are st ill unopacified consistent with decreased cardiac output. The liver itself is otherwise normal. The g allbladder, spleen, and pancreas are normal. Both adrenal glands are abnormally enlarged, much more s o on the left side than the right. The left adrenal lesion has a multilobulated appearance with some calcifications. Both adrenal glands are lipid rich, but the left adrenal gland definitely has areas o f enhancing tissue. Similar changes are suspected in the right adrenal gland although it is difficult to measure specific areas of enhancement in the right adrenal gland because of its small size. Becau se of the unusual configuration of both adrenal glands, it is difficult to obtain standard measuremen ts. Measurements of both adrenal glands are obtained in the maximum length, width, and thickness. Usi ng the same methodology for measuring each adrenal gland on the current study and the prior exam, the re has been a definite increase in size of both adrenal lesions. The left adrenal gland currently aaliyah sures 28 x 50 x 84 mm, and the previous measurements in the same orientation were 27 x 48 x 75 mm. Cu rrent measurements of the right adrenal gland are 19 x 42 x 66 mm and the previous measurements were 16 x 42 x 16 mm. The left adrenal gland measurements by themselves are highly suspicious for a malign ant lesion. In addition, the interval development of calcifications in the lesion also is suspicious. Both kidneys are normal in size, shape, position and contour. There is no hydronephrosis or hydroure ter. No right renal or ureteral calculi are present. There are multiple small 2 mm calcifications in the lower pole of the left kidney and these either represent nonobstructing ureteral calculi or they may actually be in renal artery branches. There is no left ureteral calculus. There are no abnormal r etrocrural or periaortic nodes. There is no ascites. READIN. 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 In addition, calcifications have developed in the left adrenal tumor. Based on the size of the lesion, the interval growth, and the calcifications, these lesions are susp icious for representing malignant adrenal tumors. Consideration for biopsy of the lesions is recommen ded. 2. The right kidney and visualized ureter are normal. The left kidney has multiple 2 mm punctate jared cifications in the lower pole and these either represent nonobstructing renal calculi or they may act ually represent vascular calcifications. 3. Persistent but interval decrease in the amount of the pericardial effusion and the bilateral smal l pleural effusions. 4. There is four-chamber dilatation suggesting a cardiomyopathy with low cardiac output.
== END ==
LOC: CT 07:39
PROVIDERS: ATTEND Family Medicine
DX: R93.422 Abnormal radiologic findings on diagnostic imaging of left kidney (principal)
CPT/HCPCS: 74170

== ENCOUNTER → 2017-02-14 | Outpatient (CLI) | payer BC ==
[2017-02-14 15:05] LABS: BLOOD UREA NITROGEN 25 mg/dL (7-22); BUN/CREATININE RATIO 27.77 (6-20); CALCIUM 9.7 mg/dL (8.7-10.7); EST GLOMERULAR FILTRATION > 60 (>60 ml/min/1.73m(2))
== END ==
LOC: MOB LAB 14:17
PROVIDERS: ATTEND Internal Medicine Cardiovascular Disease
DX: I50.21 Acute systolic (congestive) heart failure (principal)
CPT/HCPCS: 36415; 80048

== ENCOUNTER → 2017-05-02 | Outpatient (CLI) | payer BC ==
[2017-05-02 12:33] LABS: BASOPHILS # (AUTO) 0.04 10*3/UL; BASOPHILS % (AUTO) 0.6 % (0-1); EOSINOPHILS # (AUTO) 0.48 10*3/UL; EOSINOPHILS % (AUTO) 7.2 % (0-8); HEMATOCRIT 44.6 % (37.0-47.0); HEMOGLOBIN 14.4 g/dL (12.0-16.0); LYMPHOCYTES # (AUTO) 1.63 10*3/uL; MEAN CORPUSCULAR HEMOGLOBIN 27.9 PG (27-31); MEAN CORPUSCULAR HGB CONC 32.3 g/dL (33-37); MEAN CORPUSCULAR VOLUME 86.4 FL (81-99); MEAN PLATELET VOLUME 10.1 FL (7.4-12.2); NEUTROPHILS # (AUTO) 3.94 10*3/UL; NEUTROPHILS % (AUTO) 58.8 % (50-80); RED BLOOD COUNT 5.16 10^6/uL (4.20-5.40)
[2017-05-02 12:47] LABS: BLOOD UREA NITROGEN 26 mg/dL (7-22); CALCIUM 9.5 mg/dL (8.7-10.7); EST GLOMERULAR FILTRATION > 60 (>60 ml/min/1.73m(2)); SERUM ALBUMIN 4.2 g/dL (3.5-4.8)
[2017-05-02 13:16] LABS: PLATELET MORPHOLOGY COMMENT NORMAL MORPHOLOGY (NORM); RBC MORPHOLOGY COMMENT NORMAL MORPHOLOGY (NORM); WBC MORPHOLOGY COMMENT NORMAL MORPHOLOGY (NORM)
== END ==
LOC: MOB LAB 11:57
PROVIDERS: ATTEND Family Medicine
DX: K62.5 Hemorrhage of anus and rectum (principal); I10 Essential (primary) hypertension
CPT/HCPCS: 36415; 80053; 85025